=== PATIENT | male | born 1960 | race Hispanic/Latino ===

== ENCOUNTER 2017-07-27 19:03 | Inpatient (IN) | payer MEDICAID ==
[2017-07-27 20:37] LABS: HEMOGLOBIN 11.3 g/dL (12.0-18.0); MEAN CELL VOLUME 98.9 fL (80.0-94.0); MEAN CORPUSCULAR HEMOGLOBIN 33.9 pg (27.0-31.0); MEAN CORPUSCULAR HGB CONC 34.2 g/dL (33.0-37.0); MEAN PLATELET VOLUME 9.5 fL (7.2-11.7); RBC 3.34 Mil/uL (4.40-5.90); RED CELL DISTRIBUTION WIDTH 14.5 % (11.5-14.5)
[2017-07-27 20:50] LABS: ALB/GLOB RATIO 0.9 (1.0-2.1); ALBUMIN 3.6 g/dL (3.5-5.0); ALT/SGPT 45 U/L (21-72); AST/SGOT 84 U/L (17-59); BLOOD UREA NITROGEN 11 mg/dL (9-20); CALCIUM 8.8 mg/dl (8.6-10.4); GFR AFRICAN-AMERICAN > 60; GFR NON-AFRICAN AMERICAN 52
[2017-07-27 21:44] LABS: SQUAMOUS EPITHIAL 1 /hpf (0-5); URINE BACTERIA RARE (<OCC); URINE BILIRUBIN NEGATIVE (NEGATIVE); URINE BLOOD NEGATIVE (NEGATIVE); URINE CLARITY Clear (Clear); URINE COLOR Straw (YELLOW); URINE GLUCOSE (UA) NORMAL (Normal); URINE LEUKOCYTE ESTERASE NEG Leu/uL (Negative); URINE NITRATE NEGATIVE (NEGATIVE); URINE PROTEIN NEGATIVE (NEGATIVE); URINE UROBILINOGEN NORMAL mg/dL (0.2-1.0)
[2017-07-27 21:55] LABS: BARBITURATES, UR NEGATIVE (NEGATIVE); BENZODIAZEPINES, UR POSITIVE (NEGATIVE); OPIATES, UR NEGATIVE (NEGATIVE); PHENCYCLIDINE, UR NEGATIVE (NEGATIVE)
--- NOTE | 2017-07-27 22:12 | C.PDOC ---
History Of Present Illness Pt is here requesting detox from alcohol. Time Seen by Provider: 07/27/17 21:46 Chief Complaint (Nursing): Substance Abuse History Per: Patient Onset/Duration Of Symptoms: Days Current Symptoms Are (Timing): Still Present Suicide/Self Injury Attempted (Context): None Modifying Factor(s): Alcohol Severity: Moderate Associated Symptoms: denies: Suicidal Thoughts, Suicidal Plan Additional History Per: Prior Records Past Medical History Reviewed: Historical Data, Nursing Documentation, Vital Signs Vital Signs: Last Vital Signs Temp 98.4 F 07/27/17 19:14 Pulse 96 H 07/27/17 19:14 Resp 14 07/27/17 19:14 BP 111/74 07/27/17 19:14 Pulse Ox 96 07/27/17 19:14 - Medical History PMH: HTN, Seizures Surgical History: Cholecystectomy Family History: States: Unknown Family Hx - Social History Hx Tobacco Use: No Hx Alcohol Use: Yes Hx Substance Use: Yes - Immunization History Hx Tetanus Toxoid Vaccination: Yes Hx Influenza Vaccination: Yes Hx Pneumococcal Vaccination: No Review Of Systems Except As Marked, All Systems Reviewed And Found Negative. Constitutional: Negative for: Fever, Weakness Cardiovascular: Negative for: Chest Pain Respiratory: Negative for: Shortness of Breath Gastrointestinal: Negative for: Vomiting, Abdominal Pain Musculoskeletal: Negative for: Neck Pain Skin: Negative for: Rash Neurological: Negative for: Weakness, Numbness, Seizures, Altered Mental Status Psych: Negative for: Psychosis Physical Exam - Physical Exam Appears: Non-toxic, No Acute Distress Skin: Normal Color, Warm, Dry, No Rash Head: Atraumatic, Normacephalic Eye(s): bilateral: EOMI Neck: Normal ROM, Supple Cardiovascular: Rhythm Regular Respiratory: Normal Breath Sounds, No Accessory Muscle Use Gastrointestinal/Abdominal: Soft, No Tenderness Extremity: Normal ROM Neurological/Psych: Oriented x3, Normal Motor, Normal Sensation ED Course And Treatment - Laboratory Results Result Diagrams: 07/27/17 20:34 07/27/17 20:34 Lab Interpretation: No Acute Changes O2 Sat by Pulse Oximetry: 96 Pulse Ox Interpretation: Normal Progress Note: Pt is medically stable for detox admission. Disposition Counseled Patient/Family Regarding: Studies Performed, Diagnosis - Disposition Disposition: HOSPITALIZED Disposition Time: 22:11 Condition: STABLE - Clinical Impression Clinical Impression: Alcohol use disorder, severe, dependence Decision To Admit - Pt Status Changed To: Hospital Disposition Of: Inpatient - Admit Certification Admit to Inpatient:: After my assessment, the patient will require hospitalization for at least two midnights. This is because of the severity of symptoms shown, intensity of services needed, and/or the medical risk in this patient being treated as an outpatient. - InPatient: Physician Admission Certification: I certify that this patient requires 2 or more midnights of care for the following reason:: Detox. - . Bed Request Type: Detox Admitting Physician: Karina Kendall Patient Diagnosis: Alcohol use disorder, severe, dependence
--- NOTE | 2017-07-27 22:44 | PCM.BM ---
<LandyJill Christianson - Last Filed: 07/27/17 22:43> Treatment Plan Problems - Problems identified on initial assessmt Ineffective Coping Skills Date Initiated: 07/27/17 Time Initiated: 22:44 Assessment reference: NA Status: Active Treatment assets and liabiliti Patient Assests: ADL independent Patient Liabilities: substance abuse - Milieu Protocol Maintain good personal hygiene: daily Encourage regular showers, daily Remind patient to perform daily oral care, other Assist patient to perform ADL's Maintain personal safety: every shift Educate patient to report safety concerns to staff, every shift Monitor environment for contraband/sharps Medication safety: Monitor for expected outcome, potential side effects: every shift, Assess barriers to learning: every shift, Assess readiness for medication education: every shift <Radha Odom - Last Filed: 07/30/17 14:56> - Diagnosis (1) Alcohol use disorder, severe, dependence Status: Acute Interventions: 07/30/17 14:56 * Assess 7x/week regarding severity of withdrawal * Educate regarding risks, benefits, side effects and alternatives of medications * Use Motivational Interviewing for abstinence * Use CBT for relapse prevention * Medication management for withdrawal symptoms * Encourage medication assisted treatment * <Lashae Caballero - Last Filed: 07/30/17 16:26> Family Contact Family involvement: Jimy/SO not involved - Goals for Treatment Patient goals for treatment: Complete detox and consider inpatient rehab or outpatient Vivitrol. Discharge/Continuing Care - Education Needs Education Needs: Patient Medication, Patient Diagnosis/Disease Process, Patient Coping Skills, Patient Anger Management skills, Patient Placement options, Patient Community resources - Discharge Discharge Criteria: No longer exhibiting s/s of withdrawal, Reduction of target symptoms Discharge to:: Substance Abuse Rehab - Treatment Team Participation Patient/Family/SO Statement: 07/30/17 16:25 "I wanna either go to rehab or get that Vivitrol shot..." Discussed with Family/SO: No Was Patient/Family/SO present at Treatment Team Meeting: Yes
[2017-07-27] MEDS ORDERED: Aluminum Hydroxide/Magnesium Hydroxide Susp (30 mL) PO PRN (22:52)
[2017-07-28] MEDS: Multiple Vitamins Tab PO SCH (09:22)
--- NOTE | 2017-07-28 10:08 | PCM.PSYCH ---
Initial Psychiatric Evaluation - Initial Psychiatric Evaluation Type of Admission: Voluntary Legal Status: Capacity Chief Complaint (in patient's own words): I need help.' Patient's Reaction to Hospitalization: This is a 56 year old CM, who lives with his mother, with a long history alcohol abuse came to the [facility] for alcohol detox. Pt denies any past history of any inpatient psychiatric hospitalizations and denies any h/o follow up with any psychiatrist. However, he reports a long h/o drinking. He states he drinks 12-15 12oz beers and a pint of liquor daily. Yesterday he consumed approximately 4 12oz beers, started experiencing withdrawal s/s, so came to the to get help. Patient reports withdrawal symptoms including, headaches, tremors, anxiety and restlessness. He reports depressed mood, but denies any suicidal ideation or homicidal ideation. Patient reports poor sleep but denies any manic symptoms. He denies any auditory or visual hallucinations or any psychotic symptoms. He denies abusing any other substance except marihuana. Pt states he also smokes marijuana daily, last use was yesterday, when he "took a few hits," and states he smokes "a few joints" daily. As per the ED notes, pt stated, he has been abusing alcohol on and off x40 years. Pt has a history of ETOH-related seizures, last experienced in 01/2017 when he was hospitalized x1 week at [facility]] in [place], [place]. Pt stated his last detox was at [facility] in [place], [place] "a few months ago." Pt stated he has experienced significant trauma in the past, as his brother in his arms from an anneurysm. PMH HTN, Seizures Current Medications: Active Medications Generic Name Dose Route Start Last Admin Trade Name Freq PRN Reason Stop Dose Admin Acetaminophen 650 mg 07/28/17 09:27 07/28/17 09:34 Tylenol 325mg Tab PO 650 mg Q6 PRN Administration Pain, moderate (4-7) Al Hydrox/Mg Hydrox/Simethicone 30 ml 07/27/17 22:52 Maalox 30 Ml PO TID PRN Indigestion / Heartburn Chlordiazepoxide 25 mg 07/28/17 00:00 07/28/17 06:23 Librium PO 08/01/17 23:59 25 mg Q6 ASHWINI Administration Taper Chlordiazepoxide 25 mg 07/27/17 22:50 Librium PO Q4H PRN Alcohol Withdrawal Clonidine HCl 0.1 mg 07/27/17 22:50 07/27/17 23:46 Catapres PO 0.1 mg Q4H PRN Administration Symptoms of alcohol withdrawl Folic Acid 1 mg 07/28/17 10:00 07/28/17 09:22 Folic Acid PO 1 mg DAILY ASHWINI Administration Loperamide HCl 2 mg 07/27/17 22:52 Imodium PO Q8 PRN Diarrhea Multivitamins 1 tab 07/28/17 10:00 07/28/17 09:22 Hexavitamin PO 1 tab DAILY ASHWINI Administration Ondansetron HCl 4 mg 07/27/17 22:52 Zofran Tab PO Q8 PRN Nausea/Vomiting Pseudoephedrine HCl 60 mg 07/27/17 22:52 Sudafed Tab PO QID PRN Nasal/Sinus Congestion Thiamine HCl 100 mg 07/28/17 10:00 07/28/17 09:22 Vitamin B1 Tab PO 100 mg DAILY ASHWINI Administration Trazodone HCl 50 mg 07/27/17 22:50 07/27/17 23:46 Desyrel PO 50 mg HS PRN Administration Insomnia Past Psychiatric History - Past Psychiatric History Previous Treatment History: Inpatient Pertinent Medical Hx (Current Medical&Sleep Prob, Allergies): Allergies Allergy/AdvReac Type Severity Reaction Status Date / Time No Known Allergies Allergy Unverified 07/27/17 19:19 Folic Acid 1 mg PO DAILY 07/27/17 Labetalol [Trandate] 300 mg 07/27/17 Levetiracetam [Keppra] 500 mg PO BID 07/27/17 Losartan Potassium [Cozaar] 100 mg PO DAILY 07/27/17 Pantoprazole [Protonix Inj] 40 mg PO DAILY 07/27/17 Review of Systems - Review of Systems All systems: reviewed and no additional remarkable complaints except - Psychiatric Psychiatric: Anxiety, Irritability Mental Status Examination - Personal Presentation Personal Presentation: Looks stated age - Affect Affect: Constricted - Motor Activity Motor Activity: Calm - Reliability in Providing Information Reliability in Providing Information: Good - Speech Speech: Organized - Mood Mood: Anxious - Obsessions/Compulsions Obsessions: No Compulsions: No - Cognitive Functions Orientation: Person, Place, Situation, Time Sensorium: Alert Attention/Concentration: Attentive Abstract Thinking: [place] Estimate of Intelligence: Below average Judgement: Imparied, as evidence by: Poor judgement, Imparied, as evidence by: Lack of insight into illness - Risk Risk: Withdrawal, Diminished functioning DSM 5 DX - DSM 5 DSM 5 Diagnosis: Alcohol use disorder severe Alcohol withdrawal uncomplicated Depressive disorder - Recommended/Plan of Treatment Treatment Recommendations and Plan of Treatment: Alcohol use disorder severe -CBT -Psychoeducation -Supportive therapy, individual therapy -Use RI for abstinence Alcohol withdrawal uncomplicated -CBT -Psychoeducation -Supportive therapy, individual therapy -Librium when necessary -Start Librium taper -Start folic acid/thiamine/multivitamin Depressive disorder -CBT -Psychoeducation -Supportive therapy, individual therapy -Trazodone 50 mg PO QHS - Smoking Cessation Smoking Cessation Initiated: No
[2017-07-29 09:04] LABS: ALBUMIN 3.9 g/dL (3.5-5.0); ALT/SGPT 35 U/L (21-72); AST/SGOT 58 U/L (17-59); BLOOD UREA NITROGEN 16 mg/dL (9-20); CALCIUM 8.9 mg/dl (8.6-10.4); GFR AFRICAN-AMERICAN > 60; GFR NON-AFRICAN AMERICAN > 60
[2017-07-29] MEDS: Multiple Vitamins Tab PO SCH (09:33)
--- NOTE | 2017-07-29 12:36 | PCM.PYCHPN ---
Psychiatric Progress Note - Psychiatric Progress Note Patient seen today, length of contact: 15 min Patient Chief Complaint: I am still shaking.' Problems Identified/Issues Discussed: Patient seen and evaluated, chart reviewed and discussed with the nurse. Patient still reports withdrawal symptoms including nausea, headaches, shakes and sweating. He reports irritable mood but denies any feelings of hopelessness and helplessness. He denies any SI/HI/AVH. Patient remained isolated, confined and withdrawn. He is taking medication and denies any side effects. He needs more time for stabilization. Supportive therapy and psychoeducation were given. Medication Change: Yes (librium taper, start Neurontin) Medical Record Reviewed: Yes Mental Status Examination - Cognitive Function Orientation: Person, Place, Situation, Time Memory: Intact Attention: WNL Concentration: Poor Association: WNL Fund of Knowledge: Poor - Mood Mood: Anxious - Affect Affect: Constricted - Speech Speech: Soft - Formal Thought Process Formal Thought Process: No Impairment - Suicidal Ideation Suicidal Ideation: No - Homicidal Ideation Homicidal Ideation: No Goal/Treatment Plan - Goal/Treatment Plan Need for Continued Stay: Severe depression anxiety, Severe functional impairment Progress Toward Problem(s) and Goals/Treatment Plan: Alcohol use disorder severe -CBT -Psychoeducation -Supportive therapy, individual therapy -Use WI for abstinence Alcohol withdrawal uncomplicated -CBT -Psychoeducation -Supportive therapy, individual therapy -Librium when necessary -Librium taper -Folic acid/thiamine/multivitamin -Neurontin 300 mg PO TID Seizure d/o -Keppra 500 mg PO BID HTN -Continue Losartan 100 mg PO Daily - Smoking Cessation Smoking Cessation Initiated: No
[2017-07-30] MEDS: Multiple Vitamins Tab PO SCH (09:42)
--- NOTE | 2017-07-30 13:24 | PCM.PYCHPN ---
Psychiatric Progress Note - Psychiatric Progress Note Patient seen today, length of contact: 15 min Patient Chief Complaint: "not good but better" Problems Identified/Issues Discussed: The pt is seen, chart reviewed, case discussed with staff. Support given, CBT and NV used briefly No new symptoms reported, improving slowly and needs more time No SEs from medications, risks discussed. After care discussed Medication Change: Yes (librium taper) Medical Record Reviewed: Yes Mental Status Examination - Cognitive Function Orientation: Person, Place, Situation, Time Memory: Intact Attention: WNL Concentration: Poor Association: WNL Fund of Knowledge: WNL - Mood Mood: Anxious - Affect Affect: Constricted - Speech Speech: Appropriate, Soft - Formal Thought Process Formal Thought Process: No Impairment - Suicidal Ideation Suicidal Ideation: No - Homicidal Ideation Homicidal Ideation: No Goal/Treatment Plan - Goal/Treatment Plan Need for Continued Stay: Severe depression anxiety, Severe functional impairment Progress Toward Problem(s) and Goals/Treatment Plan: Librium detox Naltrexone started Gabapentin for augmentation As needed medications All risks, benefits and alternatives of the meds discussed, and the pt agreed and understood. Attend groups and activities Supportive therapy and psychoeducation NV for abstinence CBT for relapse prevention Encourage MAT Refer to rehab or IOP, and self-help groups 34 min
[2017-07-31] MEDS: Multiple Vitamins Tab PO SCH (09:17)
--- NOTE | 2017-07-31 15:01 | PCM.PYCHPN ---
Psychiatric Progress Note - Psychiatric Progress Note Patient seen today, length of contact: 16 min Patient Chief Complaint: "I feel shaky" Problems Identified/Issues Discussed: The pt is seen, chart reviewed, case discussed with staff. Patient states he feels shaky. He is currently experiencing withdrawal symptoms. Support given, CBT and NM used briefly No new symptoms reported, improving slowly and needs more time No SEs from medications, risks discussed. After care discussed Medication Change: Yes (librium taper) Medical Record Reviewed: Yes Mental Status Examination - Cognitive Function Orientation: Person, Place, Situation, Time Memory: Intact Attention: WNL Concentration: WNL Association: WNL Fund of Knowledge: WNL - Mood Mood: Anxious - Affect Affect: Constricted - Speech Speech: Appropriate, Soft - Formal Thought Process Formal Thought Process: No Impairment - Suicidal Ideation Suicidal Ideation: No - Homicidal Ideation Homicidal Ideation: No Goal/Treatment Plan - Goal/Treatment Plan Need for Continued Stay: Severe depression anxiety, Severe functional impairment Progress Toward Problem(s) and Goals/Treatment Plan: Librium detox Naltrexone started Gabapentin for augmentation As needed medications All risks, benefits and alternatives of the meds discussed, and the pt agreed and understood. Attend groups and activities Supportive therapy and psychoeducation NM for abstinence CBT for relapse prevention Encourage MAT Refer to rehab or IOP, and self-help groups
[2017-08-01] MEDS: Multiple Vitamins Tab PO SCH (09:12)
--- NOTE | 2017-08-01 14:57 | PCM.PYCHPN ---
Psychiatric Progress Note - Psychiatric Progress Note Patient seen today, length of contact: 16 min Patient Chief Complaint: "I still feel very shaky and sleepy" Problems Identified/Issues Discussed: The pt is seen, chart reviewed, case discussed with staff. Patient states he feels shaky. He is currently experiencing withdrawal symptoms. He states he also feels dizzy upon standing and can only walk slowly Support given, CBT and CA used briefly No new symptoms reported, improving slowly and needs more time No SEs from medications, risks discussed. After care discussed Medication Change: Yes (librium taper) Medical Record Reviewed: Yes Mental Status Examination - Cognitive Function Orientation: Person, Place, Situation, Time Memory: Intact Attention: Poor Concentration: Poor Association: WNL Fund of Knowledge: WNL - Mood Mood: Depressed - Affect Affect: Constricted - Speech Speech: Appropriate, Soft - Formal Thought Process Formal Thought Process: No Impairment - Suicidal Ideation Suicidal Ideation: No - Homicidal Ideation Homicidal Ideation: No Goal/Treatment Plan - Goal/Treatment Plan Need for Continued Stay: Severe depression anxiety, Severe functional impairment Progress Toward Problem(s) and Goals/Treatment Plan: Librium detox Naltrexone started Gabapentin for augmentation As needed medications All risks, benefits and alternatives of the meds discussed, and the pt agreed and understood. Attend groups and activities Supportive therapy and psychoeducation CA for abstinence CBT for relapse prevention Encourage MAT Refer to rehab or IOP, and self-help groups
[2017-08-02] MEDS: Multiple Vitamins Tab PO SCH (09:05)
--- NOTE | 2017-08-02 14:12 | PCM.PYCHPN ---
Psychiatric Progress Note - Psychiatric Progress Note Patient seen today, length of contact: 16 min Patient Chief Complaint: "I feel less shaky than yesterday" Problems Identified/Issues Discussed: The pt is seen, chart reviewed, case discussed with staff. Patient states he is feeling better. His shakes and dizziness have improved Patient will be ready for discharge tomorrow. The pt is compliant with medications and reports no side-effects. Symptoms are improving but needs more time to stabilize. After care discussed, support and psychoeducation given. Since he still has ongoing withdrawal sxs, his stay is extended one day. He agreed. Medication Change: Yes (librium taper) Medical Record Reviewed: Yes Mental Status Examination - Cognitive Function Orientation: Person, Place, Situation, Time Memory: Intact Attention: WNL Concentration: WNL Association: WNL Fund of Knowledge: WNL - Mood Mood: Depressed - Affect Affect: Constricted - Speech Speech: Appropriate, Soft - Formal Thought Process Formal Thought Process: No Impairment - Suicidal Ideation Suicidal Ideation: No - Homicidal Ideation Homicidal Ideation: No Goal/Treatment Plan - Goal/Treatment Plan Need for Continued Stay: Severe depression anxiety, Severe functional impairment Progress Toward Problem(s) and Goals/Treatment Plan: Librium detox ending Naltrexone started Gabapentin for augmentation As needed medications All risks, benefits and alternatives of the meds discussed, and the pt agreed and understood. Attend groups and activities Supportive therapy and psychoeducation CA for abstinence CBT for relapse prevention Encourage MAT Refer to rehab or IOP, and self-help groups Estimated Date of D/C: 08/03/17
--- NOTE | 2017-08-03 08:45 | PCM.PYCHDC ---
Mental Status Examination - Mental Status Examination Orientation: Person, Place, Situation, Time Memory: Intact Mood: Neutral Affect: Constricted Speech: Appropriate Attention: WNL Concentration: WNL Association: WNL Fund of Knowledge: WNL Formal Thought Process: No Impairment Suicidal Ideation: No Current Homicidal Ideation?: No Discharge Summary - Discharge Note Reason for Hospitalization: Detox from alcohol Consultations:: List each consultation separately and include: 1. Reason for request. 2. Findings. 3. Follow-up Summary of Hospital Course include:: 1. Description of specific treatment plan utilized for patients during their course of treatmen. 2. Summarize the time- course for resolution of acute symptoms and/or regressed behaviors. 3. Describe issues identified and worked on during hospitalization. 4. Describe medication utilized. 5. Describe medical problems identified and treated. 6. Reassessment of suicide risk Summary of Hospital Course: The pt was admitted and started on treatment with psychotherapy, support, psychoeducation and medications. UT and CBT used. The pt attended groups and activities, as well as milieu therapy. All the risks and benefits of medications are discussed and the patient understood and agreed. The pt improved with the treatments provided. After care discussed with the patient. Patient will be attending an [facility] - Final Diagnosis (DSM 5) Condition upon Discharge: STABLE DSM 5: Alcohol use disorder -severe Alcohol withdrawal uncomplicated Depressive disorder, recurrent Disposition: HOME/ ROUTINE Follow-up Treatment Plan: Continue below medications after discharge. He agreed to stop keppra slowly and will consult with a neurologist. He only had one seizure and it was while withdrawing from alcohol. Follow after care plan as discussed. Use relapse prevention skills Return to ER or call 911 if suicidal, homicidal or symptoms relapse. Stay away from stress, alcohol and drugs. See primary doctor regularly and get labs. Prescriptions/Medication Reconciliation: Gabapentin [Neurontin] 300 mg PO TID #90 cap levETIRAcetam [Keppra] 250 mg PO DAILY #7 tab Losartan [Cozaar] 100 mg PO DAILY #30 tab Naltrexone [Revia] 50 mg PO DAILY #30 tab Sertraline [Zoloft] 50 mg PO DAILY #30 tab traZODone [Desyrel] 100 mg PO HS PRN #30 tab PRN Reason: Insomnia - Smoking Cessation Smoking Cessation Medication prescribed: No - Antipsychotic Medications Pt discharged on 2 or more routine antipsychotic medications: No
[2017-08-03] MEDS: Multiple Vitamins Tab PO SCH (09:14)
[2017-08-03 10:10] VITALS: BP 144/81; PULSE 79; RESP 20; TEMP 97.4; O2SAT 97
== END 2017-08-03 10:15 | disposition home or self-care (01) | DRG 751 ==
LOC: C.ER 19:03 → C.7D 22:12
PROVIDERS: ADMIT Psychiatry & Neurology Psychiatry; ATTEND Psychiatry & Neurology Psychiatry
PROC: HZ2ZZZZ Detoxification Services for Substance Abuse Treatment (ICD-10-PCS; principal; 2017-07-28)
PROC: HZ42ZZZ Group Counseling for Substance Abuse Treatment, Cognitive-Behavioral (ICD-10-PCS; 2017-07-28)
PROC: HZ52ZZZ Individual Psychotherapy for Substance Abuse Treatment, Cognitive-Behavioral (ICD-10-PCS; 2017-07-28)
PROC: HZ59ZZZ Individual Psychotherapy for Substance Abuse Treatment, Supportive (ICD-10-PCS; 2017-07-28)
PROC: HZ56ZZZ Individual Psychotherapy for Substance Abuse Treatment, Psychoeducation (ICD-10-PCS; 2017-07-28)
PROC: HZ46ZZZ Group Counseling for Substance Abuse Treatment, Psychoeducation (ICD-10-PCS; 2017-07-28)
DX: F10.230 Alcohol dependence with withdrawal, uncomplicated (principal); F41.8 Other specified anxiety disorders; I10 Essential (primary) hypertension; Y90.3 Blood alcohol level of 60-79 mg/100 ml; G40.909 Epilepsy, unspecified, not intractable, without status epilepticus; Z90.49 Acquired absence of other specified parts of digestive tract

== ENCOUNTER 2017-10-18 14:07 | Inpatient (IN) | payer MEDICAID ==
--- NOTE | 2017-10-18 15:01 | C.PDOC ---
History Of Present Illness 57yo male, presents to ED requesting detox from alcohol. Patient denies fever, chills, chest pain, dyspnea, nausea, vomiting, diarrhea, numbness, weakness. Patient states last alcohol use was an hour prior to arrival. No other complaints. Time Seen by Provider: 10/18/17 14:34 Chief Complaint (Nursing): Substance Abuse History Per: Patient History/Exam Limitations: no limitations Associated Symptoms: denies: Suicidal Thoughts, Suicidal Plan Past Medical History Reviewed: Historical Data, Nursing Documentation, Vital Signs Vital Signs: Last Vital Signs Temp 97.8 F 10/18/17 14:17 Pulse 92 H 10/18/17 14:17 Resp 16 10/18/17 14:17 BP 150/81 10/18/17 14:17 Pulse Ox 92 L 10/18/17 17:12 - Medical History PMH: HTN, Seizures Denies: Diabetes, Hepatitis, HIV, Sexually Transmitted Disease Surgical History: Cholecystectomy - [facility] Procedures DETOXIFICATION SERVICES FOR SUBSTANCE ABUSE TREATMENT (07/27/17) GROUP ROOM SERVICE [facility] FOR SUBSTANCE ABUSE TREATMENT, PSYCHOEDUCATION (07/27/17) GROUP ROOM SERVICE [facility] FOR SUBSTANCE ABUSE, COGNITIVE BEHAVIORAL (07/27/17) INDIV PSYCHOTHERAPY FOR SUBSTANCE ABUSE TREATMENT, SUPPORT (07/27/17) INDIV PSYCHOTHERAPY FOR SUBSTANCE ABUSE, COGNITIV BEHAVIORAL (07/27/17) INDIV PSYCHOTHERAPY FOR SUBSTANCE ABUSE, PSYCHOEDUCATION (07/27/17) Family History: States: Unknown Family Hx - Social History Hx Tobacco Use: No Hx Alcohol Use: Yes Hx Substance Use: Yes (marijuana) - Immunization History Hx Tetanus Toxoid Vaccination: Yes Hx Influenza Vaccination: Yes Hx Pneumococcal Vaccination: No Review Of Systems Except As Marked, All Systems Reviewed And Found Negative. Constitutional: Negative for: Fever Cardiovascular: Negative for: Chest Pain Physical Exam - Physical Exam Additional Physical Exam Comments: Constitutional: No acute distress. Head: Normocephalic. Atraumatic. Eyes: PERRL. ENT: Moist mucous membranes. Neck: Supple. Cardiovascular: Regular rate. Radial pulse 2+ bilaterally. Chest: No tenderness. Respiratory: Clear to auscultation bilaterally. GI: Soft. Nontender. Nondistended. Back: No CVA tenderness. Musculoskeletal: No tenderness or swelling of extremities. Skin: No rash. Neurologic: Alert, no focal deficit. ED Course And Treatment - Laboratory Results Result Diagrams: 10/18/17 15:33 10/18/17 15:33 O2 Sat by Pulse Oximetry: [address]position D[address].: Karina Kendall Doctor Will See Patient In The: Hospital - Disposition Disposition: HOSPITALIZED Disposition Time: 17:12 Condition: STABLE Forms: [facility] (Luxembourgish) - Clinical Impression Clinical Impression: Alcohol use disorder, severe, dependence - Scribe Statement The provider has reviewed the documentation as recorded by the Scribe (Sandra Holliday) Provider Attestation: All medical record entries made by the Nallelyibe were at my direction and personally dictated by me. I have reviewed the chart and agree that the record accurately reflects my personal performance of the history, physical exam, medical decision making, and the department course for this patient. I have also personally directed, reviewed, and agree with the discharge instructions and disposition.
[2017-10-18 15:48] LABS: BASO # 0.2 K/uL (0.0-0.2); BASO % 1.3 % (0.0-2.0); EOS # 0.4 K/uL (0.0-0.7); EOS % 3.4 % (0.0-4.0); HEMOGLOBIN 12.6 g/dL (12.0-18.0); LYMPH # 3.6 K/uL (1.0-4.3); LYMPH % 30.8 % (20.0-40.0); MEAN CORPUSCULAR HEMOGLOBIN 32.2 pg (27.0-31.0); MEAN CORPUSCULAR HGB CONC 34.1 g/dL (33.0-37.0); MEAN PLATELET VOLUME 9.2 fL (7.2-11.7); MONO # 1.1 K/uL (0.0-0.8); MONO % 9.2 % (0.0-10.0); NEUT # 6.5 K/uL (1.8-7.0); NEUT % 55.3 % (50.0-75.0); RBC 3.93 Mil/uL (4.40-5.90); RED CELL DISTRIBUTION WIDTH 14.3 % (11.5-14.5)
[2017-10-18 15:51] LABS: MEAN CELL VOLUME 94.3 fL (80.0-94.0); WHITE BLOOD COUNT 11.8 K/uL (4.8-10.8)
[2017-10-18 15:55] LABS: SQUAMOUS EPITHIAL 1 /hpf (0-5); URINE BILIRUBIN NEGATIVE (NEGATIVE); URINE BLOOD NEGATIVE (NEGATIVE); URINE CLARITY Clear (Clear); URINE COLOR Straw (YELLOW); URINE GLUCOSE (UA) NORMAL (Normal); URINE LEUKOCYTE ESTERASE 1+ Leu/uL (Negative); URINE PROTEIN NEGATIVE (NEGATIVE); URINE UROBILINOGEN NORMAL mg/dL (0.2-1.0)
[2017-10-18 16:08] LABS: ALB/GLOB RATIO 0.8 (1.0-2.1); ALBUMIN 4.1 g/dL (3.5-5.0); ALT/SGPT 36 U/L (21-72); AST/SGOT 63 U/L (17-59); BLOOD UREA NITROGEN 10 mg/dL (9-20); CALCIUM 9.8 mg/dl (8.6-10.4); GFR AFRICAN-AMERICAN > 60; GFR NON-AFRICAN AMERICAN > 60
[2017-10-18 16:16] LABS: BARBITURATES, UR NEGATIVE (NEGATIVE); OPIATES, UR NEGATIVE (NEGATIVE); PHENCYCLIDINE, UR NEGATIVE (NEGATIVE)
[2017-10-18 16:22] LABS: BENZODIAZEPINES, UR POSITIVE (NEGATIVE)
--- NOTE | 2017-10-18 17:49 | PCM.BM ---
<To Denise - Last Filed: 10/18/17 17:49> Treatment Plan Problems - Problems identified on initial assessmt potential for alcohol withdrawal Date Initiated: 10/18/17 Time Initiated: 17:48 Assessment reference: NA Status: Active Treatment assets and liabiliti Patient Assests: ADL independent, cognitively intact Patient Liabilities: substance abuse, medical problems - Milieu Protocol Maintain good personal hygiene: daily Encourage regular showers, daily Remind patient to perform daily oral care, daily Assist patient to perform ADL's Conduct patient checks and document Observation sheet: Q15 minutes Maintain personal safety: every shift Educate patient to report safety concerns to staff, every shift Monitor environment for contraband/sharps Medication safety: Monitor for expected outcome, potential side effects: daily, Assess barriers to learning: daily, Assess readiness for medication education: daily <Lashae Caballero - Last Filed: 10/22/17 11:25> Family Contact Family involvement: No known Family/SO - Goals for Treatment Patient goals for treatment: COMPLETE DETOX AND APPLY FOR SHORT-TERM REHAB. Discharge/Continuing Care - Education Needs Education Needs: Patient Medication, Patient Diagnosis/Disease Process, Patient Coping Skills, Patient Anger Management skills, Patient Placement options, Patient Community resources - Discharge Discharge Criteria: Free of agitation, No longer exhibiting s/s of withdrawal, Reduction of target symptoms Discharge to:: Substance Abuse Rehab - Treatment Team Participation Patient/Family/SO Statement: 10/22/17 11:26 "i WANNA GO TO SHORT TERM REHAB". Discussed with Family/SO: No Was Patient/Family/SO present at Treatment Team Meeting: Yes <Radha Odom - Last Filed: 10/22/17 18:55> - Diagnosis (1) Alcohol use disorder, severe, dependence Status: Acute Interventions: 10/22/17 18:55 * Assess 7x/week regarding severity of withdrawal * Educate regarding risks, benefits, side effects and alternatives of medications * Use Motivational Interviewing for abstinence * Use CBT for relapse prevention * Medication management for withdrawal symptoms * Encourage medication assisted treatment *
[2017-10-19] MEDS: Labetalol Hydrochloride 300 mg Tab PO SCH (10:10)
[2017-10-19] MEDS: Multiple Vitamins Tab PO SCH (10:11)
--- NOTE | 2017-10-19 14:47 | PCM.PSYCH ---
Initial Psychiatric Evaluation - Initial Psychiatric Evaluation Type of Admission: Voluntary Legal Status: Capacity Chief Complaint (in patient's own words): "I need to stop." History of Present Illness and Precipitating Events: This is a 57 year old male, who presented to the ED for alcohol detox. Patient states he drinks 1 pint of tequila and a 12-pack of beer per day. Patient states he has been to several detox and short-term rehab facilities before. He states he was last at [facility] in July for detox. Patient states he also smokes marijuana occasionally. Patient denies other illicit drug use or tobacco use. Patient denies depression, anxiety, suicidal ideation, paranoia, or hallucinations. psych history: denies medical history: HTN, withdrawal seizure allergies: NKDA Current Medications: Active Medications Generic Name Dose Route Start Last Admin Trade Name Freq PRN Reason Stop Dose Admin Chlordiazepoxide 25 mg 10/18/17 20:47 10/19/17 13:05 Librium PO 25 mg Q4H PRN Administration Alcohol Withdrawal Chlordiazepoxide 25 mg 10/19/17 00:00 10/19/17 12:11 Librium PO 10/23/17 23:59 Not Given Q6 ASHWINI Taper Clonidine HCl 0.1 mg 10/18/17 22:04 10/19/17 06:06 Catapres PO 0.1 mg Q8H PRN Administration Symptoms of alcohol withdrawl Folic Acid 1 mg 10/19/17 10:00 10/19/17 10:10 Folic Acid PO 1 mg DAILY ASHWINI Administration Gabapentin 300 mg 10/19/17 10:00 10/19/17 13:05 Neurontin PO 300 mg TID ASHWINI Administration Labetalol HCl 300 mg 10/19/17 10:00 10/19/17 10:10 Normodyne PO 300 mg DAILY ASHWINI Administration Losartan Potassium 100 mg 10/19/17 10:00 10/19/17 10:10 Cozaar PO 100 mg DAILY ASHWINI Administration Multivitamins 1 tab 10/19/17 10:00 10/19/17 10:11 Hexavitamin PO 1 tab DAILY ASHWINI Administration Thiamine HCl 100 mg 10/19/17 10:00 10/19/17 10:10 Vitamin B1 Tab PO 100 mg DAILY ASHWINI Administration Trazodone HCl 50 mg 10/18/17 20:46 10/18/17 20:52 Desyrel PO 50 mg HS PRN Administration Insomnia Past Psychiatric History - Past Psychiatric History Previous Treatment History: None History of ETOH/Drug Use: Alcohol Use Disorder History of Family Illness: Denies Pertinent Medical Hx (Current Medical&Sleep Prob, Allergies): Allergies Allergy/AdvReac Type Severity Reaction Status Date / Time No Known Allergies Allergy Unverified 07/27/17 19:19 Labetalol [Trandate] 300 mg PO DAILY 07/27/17 Gabapentin [Neurontin] 300 mg PO TID #90 cap 08/03/17 Losartan [Cozaar] 100 mg PO DAILY #30 tab 08/03/17 Sertraline [Zoloft] 50 mg PO DAILY #30 tab 08/03/17 levETIRAcetam [Keppra] 250 mg PO DAILY #7 tab 08/03/17 traZODone [Desyrel] 100 mg PO HS PRN #30 tab 08/03/17 Review of Systems - Review of Systems All systems: reviewed and no additional remarkable complaints except - Psychiatric Psychiatric: absent: Anxiety, Depression, Hallucinations, Hopelessness, Paranoia , Suicidal Ideation Mental Status Examination - Personal Presentation Personal Presentation: Looks stated age - Affect Affect: Broad - Motor Activity Motor Activity: Calm - Reliability in Providing Information Reliability in Providing Information: Fair - Speech Speech: Organized - Mood Mood: Anxious - Formal Thought Process Formal Thought Process: No Impairment - Obsessions/Compulsions Obsessions: No Compulsions: No - Cognitive Functions Orientation: Person, Place, Situation Sensorium: Alert - Risk Risk: Withdrawal - Limitations Limitations: Living alone DSM 5 DX - DSM 5 DSM 5 Diagnosis: Alcohol Use Disorder, severe Alcohol withdrawal - Recommended/Plan of Treatment Treatment Recommendations and Plan of Treatment: Start Librium taper Gabapentin for augmentation As needed medications All risks, benefits and alternatives of the meds discussed, and the pt agreed and understood. Attend groups and activities Supportive therapy and psychoeducation CA for abstinence CBT for relapse prevention Encourage MAT Refer to rehab or IOP, and self-help groups 34 min
[2017-10-20] MEDS: Labetalol Hydrochloride 300 mg Tab PO SCH (10:53)
[2017-10-20] MEDS: Multiple Vitamins Tab PO SCH (10:53)
--- NOTE | 2017-10-20 14:28 | PCM.PYCHPN ---
Psychiatric Progress Note - Psychiatric Progress Note Patient seen today, length of contact: 15 minutes Patient Chief Complaint: I'm feeling little better but sleepy as not good. Problems Identified/Issues Discussed: Patient seen, chart reviewed, case discussed with the staff. Issues related to illness and treatment were discussed with the patient and staff. Reported compliant with treatment with no adverse affects. Patient reported feeling little better. Also complaining about sleeping difficulties. Will increase the dose of trazodone to 100 mg from 50 mg. Patient agreed Aftercare discussed with the patient. At the time of evaluation, patient was awake alert oriented 3, no delusions, no auditory visual hallucinations, no suicidal ideations or homicidal ideations. Medical Problems: Hypertension Diagnostic Results: Reviewed DSM 5 Symptoms Update: Some improvement with treatment Medication Change: No Medical Record Reviewed: Yes Mental Status Examination - Cognitive Function Orientation: Person, Place, Situation, Time Memory: Intact Attention: WNL Concentration: WNL Association: [facility] Fund of Knowledge: [facility] Decription of patient's judgement and insights: Fair - Mood Mood: Anxious - Affect Affect: Other (Appropriate) - Speech Speech: Appropriate - Formal Thought Process Formal Thought Process: No Impairment Psychotic Thoughts and Behaviors: None - Suicidal Ideation Suicidal Ideation: No - Homicidal Ideation Homicidal Ideation: No Goal/Treatment Plan - Goal/Treatment Plan Need for Continued Stay: Remain at risks for inpatient hospitalization, Discharge may exacerbated symptoms, Severe functional impairment Progress Toward Problem(s) and Goals/Treatment Plan: Patient education Supportive therapy CBT for relapse prevention [place] for abstinence Will increase the dose of trazodone to 100 mg from 50 mg at bedtime. Continue rest of the treatment as before Estimated Date of D/C: 10/23/17 - Smoking Cessation Smoking Cessation Initiated: No
[2017-10-21] MEDS: Labetalol Hydrochloride 300 mg Tab PO SCH (09:08)
[2017-10-21] MEDS: Multiple Vitamins Tab PO SCH (09:08)
--- NOTE | 2017-10-21 13:05 | PCM.PYCHPN ---
Psychiatric Progress Note - Psychiatric Progress Note Patient seen today, length of contact: 15 minutes Patient Chief Complaint: I'm feeling better, my sleep was also better. Problems Identified/Issues Discussed: Patient seen, chart reviewed, case discussed with the staff. Issues related to illness and treatment were discussed with the patient and staff. Reported compliant with treatment with no adverse affects. Patient reported feeling better, but better sleep. Calm and cooperative with good eye contact. Aftercare discussed with the patient. At the time of evaluation, patient was awake alert oriented 3, no delusions, no auditory visual hallucinations, no suicidal ideations or homicidal ideations. Medical Problems: Hypertension Diagnostic Results: Reviewed DSM 5 Symptoms Update: Improving with treatment Medication Change: No Medical Record Reviewed: Yes Mental Status Examination - Cognitive Function Orientation: Person, Place, Situation, Time Memory: Intact Attention: WNL Concentration: WNL Association: WNL Fund of Knowledge: WN Decription of patient's judgement and insights: Fair - Mood Mood: Anxious (Wants less than before) - Affect Affect: Other (Appropriate) - Speech Speech: Appropriate - Formal Thought Process Formal Thought Process: No Impairment Psychotic Thoughts and Behaviors: None - Suicidal Ideation Suicidal Ideation: No - Homicidal Ideation Homicidal Ideation: No Goal/Treatment Plan - Goal/Treatment Plan Need for Continued Stay: Remain at risks for inpatient hospitalization, Discharge may exacerbated symptoms, Severe functional impairment Progress Toward Problem(s) and Goals/Treatment Plan: Patient education Supportive therapy CBT for relapse prevention [place] for abstinence Continue treatment as before Estimated Date of D/C: 10/23/17 - Smoking Cessation Smoking Cessation Initiated: No
--- NOTE | 2017-10-21 17:31 | RAD ---
Chest x-ray two views History: Rehab. Comparison: None available. Findings: Surgical clips project over the mediastinum. Biapical pleural thickening with upper lobe granulomatous changes. Small nodular density at the right apex. Diffuse increased interstitial lung markings. Right hilar prominence. Mild patchy increased markings at the lung bases. Top normal heart size. Degenerative changes spine and shoulders. Impression: Surgical clips project over the mediastinum. Biapical pleural thickening with upper lobe granulomatous changes. Small nodular density at the right apex. Diffuse increased interstitial lung markings. Right hilar prominence. Mild patchy increased markings at the lung bases. Top normal heart size.
[2017-10-22] MEDS: Multiple Vitamins Tab PO SCH (09:42)
[2017-10-22] MEDS: Labetalol Hydrochloride 300 mg Tab PO SCH (12:03)
--- NOTE | 2017-10-22 13:13 | PCM.PYCHPN ---
Psychiatric Progress Note - Psychiatric Progress Note Patient seen today, length of contact: 15 minutes Patient Chief Complaint: "I am OK' Problems Identified/Issues Discussed: The pt is seen, chart reviewed, case discussed with staff. Support given, CBT and CA used briefly No new symptoms reported, improving slowly and needs more time No SEs from medications, risks discussed. After care discussed Medication Change: Yes (detox changes daily) Medical Record Reviewed: Yes Mental Status Examination - Cognitive Function Orientation: Person, Place, Situation, Time Memory: Intact Attention: WNL Concentration: WNL Association: WNL Fund of Knowledge: WNL - Mood Mood: Anxious (Wants less than before) - Affect Affect: Other (Appropriate) - Speech Speech: Appropriate - Formal Thought Process Formal Thought Process: No Impairment - Suicidal Ideation Suicidal Ideation: No - Homicidal Ideation Homicidal Ideation: No Goal/Treatment Plan - Goal/Treatment Plan Need for Continued Stay: Discharge may exacerbated symptoms, Severe functional impairment Progress Toward Problem(s) and Goals/Treatment Plan: Librium taper Gabapentin for augmentation As needed medications All risks, benefits and alternatives of the meds discussed, and the pt agreed and understood. Attend groups and activities Supportive therapy and psychoeducation CA for abstinence CBT for relapse prevention Encourage MAT Refer to rehab or IOP, and self-help groups Estimated Date of D/C: 10/23/17
[2017-10-22 17:03] VITALS: RESP 18
[2017-10-23 06:31] VITALS: O2SAT 96
--- NOTE | 2017-10-23 08:51 | PCM.PYCHDC ---
Mental Status Examination - Mental Status Examination Orientation: Person, Place, Situation, Time Discharge Summary - Discharge Note Consultations:: List each consultation separately and include: 1. Reason for request. 2. Findings. 3. Follow-up Summary of Hospital Course include:: 1. Description of specific treatment plan utilized for patients during their course of treatmen. 2. Summarize the time- course for resolution of acute symptoms and/or regressed behaviors. 3. Describe issues identified and worked on during hospitalization. 4. Describe medication utilized. 5. Describe medical problems identified and treated. 6. Reassessment of suicide risk Summary of Hospital Course: This is a 57 year old male, who presented to the ED for alcohol detox. Patient states he drinks 1 pint of tequila and a 12-pack of beer per day. Patient states he has been to several detox and short-term rehab facilities before. He states he was last at [facility] in July for detox. Patient states he also smokes marijuana occasionally. Patient denies other illicit drug use or tobacco use. Patient denies depression, anxiety, suicidal ideation, paranoia, or hallucinations. psych history: denies medical history: HTN, withdrawal seizure allergies: NKDA Wait listed in [facility] - Diagnosis (1) Alcohol use disorder, severe, dependence Current Visit: Yes Status: Acute - Final Diagnosis (DSM 5) Condition upon Discharge: STABLE Disposition: HOME/ ROUTINE Follow-up Treatment Plan: Librium taper Gabapentin for augmentation As needed medications All risks, benefits and alternatives of the meds discussed, and the pt agreed and understood. Attend groups and activities Supportive therapy and psychoeducation [place] for abstinence CBT for relapse prevention Encourage MAT Refer to rehab or IOP, and self-help groups Prescriptions/Medication Reconciliation: Gabapentin [Neurontin] 300 mg PO TID #90 cap hydrOXYzine HCl [Atarax] 50 mg PO BID PRN #40 tab PRN Reason: Anxiety Labetalol Hydrochloride [Normodyne] 300 mg PO DAILY #30 tab Losartan [Cozaar] 100 mg PO DAILY #30 tab Multivitamins [Hexavitamin] 1 tab PO DAILY #30 tab traZODone [Desyrel] 100 mg PO HS PRN #30 tab PRN Reason: Insomnia
[2017-10-23] MEDS: Labetalol Hydrochloride 300 mg Tab PO SCH (09:16)
[2017-10-23] MEDS: Multiple Vitamins Tab PO SCH (09:16)
[2017-10-23 10:32] VITALS: BP 121/71; PULSE 93; TEMP 98.3
== END 2017-10-23 11:30 | disposition home or self-care (01) | DRG 751 ==
LOC: C.ER 14:07 → C.7D 17:24
PROVIDERS: ADMIT Psychiatry & Neurology Psychiatry; ATTEND Psychiatry & Neurology Psychiatry
PROC: HZ2ZZZZ Detoxification Services for Substance Abuse Treatment (ICD-10-PCS; principal; 2017-10-18)
DX: F10.239 Alcohol dependence with withdrawal, unspecified (principal); F10.230 Alcohol dependence with withdrawal, uncomplicated; F10.220 Alcohol dependence with intoxication, uncomplicated; F12.10 Cannabis abuse, uncomplicated; Y90.1 Blood alcohol level of 20-39 mg/100 ml; I10 Essential (primary) hypertension; F19.10 Other psychoactive substance abuse, uncomplicated

== ENCOUNTER 2018-01-16 17:27 | Inpatient (IN) | payer MEDICAID ==
[2018-01-16 18:09] LABS: BASO # 0.2 K/uL (0.0-0.2); BASO % 2.6 % (0.0-2.0); EOS # 0.1 K/uL (0.0-0.7); EOS % 1.7 % (0.0-4.0); HEMOGLOBIN 12.1 g/dL (12.0-18.0); LYMPH # 2.7 K/uL (1.0-4.3); LYMPH % 34.1 % (20.0-40.0); MEAN CORPUSCULAR HEMOGLOBIN 31.9 pg (27.0-31.0); MEAN CORPUSCULAR HGB CONC 33.6 g/dL (33.0-37.0); MEAN PLATELET VOLUME 8.2 fL (7.2-11.7); MONO # 0.9 K/uL (0.0-0.8); MONO % 11.4 % (0.0-10.0); NEUT % 50.2 % (50.0-75.0); NRBC % 0.1 % (0.0-2.0); RBC 3.8 Mil/uL (4.40-5.90); WHITE BLOOD COUNT 7.9 K/uL (4.8-10.8)
--- NOTE | 2018-01-16 18:20 | C.PDOC ---
History Of Present Illness Patient presents to ED for alcohol detox. Patient is a daily drinker of ETOH, last drink was approx 2-3 hrs [employer]. He is currently c/o mild tremors and nausea. He denies any other physical complaints, and has no SI/HI. Time Seen by Provider: 01/16/18 17:36 Chief Complaint (Nursing): Substance Abuse History Per: Patient History/Exam Limitations: no limitations Onset/Duration Of Symptoms: Persistent Modifying Factor(s): Alcohol Severity: Moderate Associated Symptoms: denies: Anxiety, Depression, Suicidal Thoughts Past Medical History Reviewed: Historical Data, Nursing Documentation, Vital Signs Vital Signs: Last Vital Signs Temp 97.6 F 01/16/18 17:31 Pulse 80 01/16/18 17:31 Resp 18 01/16/18 17:31 BP 144/72 01/16/18 17:31 Pulse Ox 98 01/16/18 18:40 - Medical History PMH: Fractures, Gall Bladder Disease, HTN, Seizures Surgical History: CABG, Cholecystectomy - [facility] Procedures DETOXIFICATION SERVICES FOR SUBSTANCE ABUSE TREATMENT (10/18/17) GROUP BILINGUAL INTERPRETER FOR SUBSTANCE ABUSE TREATMENT, PSYCHOEDUCATION (07/27/17) GROUP BILINGUAL INTERPRETER FOR SUBSTANCE ABUSE, COGNITIVE BEHAVIORAL (07/27/17) INDIV PSYCHOTHERAPY FOR SUBSTANCE ABUSE TREATMENT, SUPPORT (07/27/17) INDIV PSYCHOTHERAPY FOR SUBSTANCE ABUSE, COGNITIV BEHAVIORAL (07/27/17) INDIV PSYCHOTHERAPY FOR SUBSTANCE ABUSE, PSYCHOEDUCATION (07/27/17) Family History: States: No Known Family Hx - Social History Hx Tobacco Use: No Hx Alcohol Use: Yes Hx Substance Use: Yes - Immunization History Hx Tetanus Toxoid Vaccination: Yes Hx Influenza Vaccination: Yes Hx Pneumococcal Vaccination: No Review Of Systems Constitutional: Negative for: Fever, Chills Cardiovascular: Negative for: Chest Pain, Palpitations Gastrointestinal: Positive for: Nausea. Negative for: Vomiting, Abdominal Pain , Diarrhea Skin: Negative for: Rash Neurological: Positive for: Other (mild tremors). Negative for: Headache Physical Exam - Physical Exam Appears: Well, Non-toxic, No Acute Distress Skin: Normal Color, Warm, Dry Head: Atraumatic, Normacephalic Eye(s): bilateral: Normal Inspection Oral Mucosa: Moist Cardiovascular: Rhythm Regular Respiratory: Normal Breath Sounds, No Rales, No Rhonchi, No Wheezing Gastrointestinal/Abdominal: Normal Exam, Bowel Sounds, Soft, No Tenderness Extremity: Bilateral: Atraumatic, Normal ROM Neurological/Psych: Oriented x3, Other (mild tremors B/L UEs) ED Course And Treatment - Laboratory Results Result Diagrams: 01/16/18 18:06 01/16/18 18:06 O2 Sat by Pulse Oximetry: 98 (RA) Pulse Ox Interpretation: Normal Progress Note: Blood work, UA, UDS ordered and reviewed. Patient given PO Librium and PO Zofran ODT. 6:10pm- Patient's ETOH 397. Patient otherwise medically cleared. Pending sobriety and crisis. Disposition - Disposition Disposition Time: 19:00 Condition: STABLE Forms: [facility] (Samoan) - Clinical Impression Clinical Impression: Alcohol dependence Physician Patient Turnover Patient Signed Over To: Deandre Katz Handoff Comments: pending sobriety and crisis evaluation
[2018-01-16 18:21] LABS: ALBUMIN 4.8 g/dL (3.5-5.0); ALT/SGPT 93 U/L (21-72); AST/SGOT 188 U/L (17-59); BLOOD UREA NITROGEN 14 mg/dL (9-20); CALCIUM 9.3 mg/dl (8.6-10.4); GFR AFRICAN-AMERICAN > 60; GFR NON-AFRICAN AMERICAN > 60
[2018-01-16 18:23] LABS: URINE BACTERIA OCC (<OCC); URINE BILIRUBIN NEGATIVE (NEGATIVE); URINE BLOOD NEGATIVE (NEGATIVE); URINE CLARITY Clear (Clear); URINE COLOR Straw (YELLOW); URINE GLUCOSE (UA) NORMAL (Normal); URINE LEUKOCYTE ESTERASE TRACE Leu/uL (Negative); URINE PROTEIN NEGATIVE (NEGATIVE); URINE UROBILINOGEN NORMAL mg/dL (0.2-1.0)
[2018-01-16 18:26] LABS: BARBITURATES, UR NEGATIVE (NEGATIVE); BENZODIAZEPINES, UR NEGATIVE (NEGATIVE); OPIATES, UR NEGATIVE (NEGATIVE); PHENCYCLIDINE, UR NEGATIVE (NEGATIVE)
--- NOTE | 2018-01-17 00:31 | PCM.BM ---
<Jill Bill M - Last Filed: 01/17/18 00:30> Treatment Plan Problems - Problems identified on initial assessmt Ineffective Coping Skills Date Initiated: 01/17/18 Time Initiated: 00:31 Assessment reference: NA Status: Active Treatment assets and liabiliti Patient Assests: ADL independent, cognitively intact Patient Liabilities: substance abuse - Milieu Protocol Maintain good personal hygiene: daily Encourage regular showers, daily Remind patient to perform daily oral care, other Assist patient to perform ADL's Maintain personal safety: every shift Educate patient to report safety concerns to staff, every shift Monitor environment for contraband/sharps Medication safety: Monitor for expected outcome, potential side effects: every shift, Assess barriers to learning: every shift, Assess readiness for medication education: every shift <Juan Goff M - Last Filed: 01/18/18 13:08> - Diagnosis (1) Alcohol use disorder, severe, dependence Status: Acute Interventions: 01/18/18 13:07 * Assess 7x/week regarding severity of withdrawal * Educate regarding risks, benefits, side effects and alternatives of medications * Use Motivational Interviewing for abstinence * Use CBT for relapse prevention * Medication management for withdrawal symptoms * Encourage medication assisted treatment (2) Cannabis use disorder, severe, dependence Status: Acute Interventions: 01/18/18 13:08 * Assess 7x/week regarding severity of withdrawal * Educate regarding risks, benefits, side effects and alternatives of medications * Use Motivational Interviewing for abstinence * Use CBT for relapse prevention * Medication management for withdrawal symptoms * Encourage medication assisted treatment
[2018-01-17] MEDS ORDERED: Multiple Vitamins Tab PO SCH (10:00)
--- NOTE | 2018-01-17 15:48 | PCM.PSYCH ---
Initial Psychiatric Evaluation - Initial Psychiatric Evaluation Type of Admission: Voluntary Legal Status: Capacity Chief Complaint (in patient's own words): I need help for my substance use. History of Present Illness and Precipitating Events: Patient is a 57 years old, single, unemployed, male with no previous psychiatric history was admitted due to withdrawing from alcohol and cannabis. Alcohol: Started using alcohol at 12 years of age, increased gradually. Currently he was drinking about 30 packs of beer and one and a half pack of jackass daily. His last drink was yesterday. He has history of 3 detox and one rehabilitation at [facility]. There was no longest period of abstinence. Next Cannabis. Started using cannabis at 14 years of age, increased gradually. Currently he was smoking 2-3 joints of cannabis daily. Last used yesterday. He has history of cocaine use years ago. He quit smoking one year ago. He has history of cholecystectomy, CABG, left femur surgery and splenectomy. He was born in [place] has 10th grade of education. 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 Currently he is on disability. He is single and has no children. He lives with mother. Height is 6 feet and his weight is 154 pounds. Patient wants to go to [facility] for follow-up care after discharge from the hospital. Current Medications: Active Medications Generic Name Dose Route Start Last Admin Trade Name Barron PRN Reason Stop Dose Admin Clonidine HCl 0.1 mg 01/17/18 00:35 Catapres PO Q4H PRN Symptoms of alcohol withdrawl Folic Acid 1 mg 01/17/18 10:00 01/17/18 10:12 Folic Acid PO 1 mg DAILY ASHWINI Administration Hydroxyzine HCl 25 mg 01/16/18 23:59 01/17/18 10:12 Atarax PO 25 mg Q6H PRN Administration Agitation Lorazepam 2 mg 01/17/18 00:35 01/17/18 12:44 Ativan PO 01/21/18 23:44 2 mg Q4 ASHWINI Administration Taper Multivitamins 1 tab 01/17/18 10:00 01/17/18 10:12 Hexavitamin PO 1 tab DAILY ASHWINI Administration Thiamine HCl 100 mg 01/17/18 10:00 01/17/18 10:12 Vitamin B1 Tab PO 100 mg DAILY ASHWINI Administration Trazodone HCl 50 mg 01/16/18 23:56 01/17/18 00:18 Desyrel PO 50 mg HS PRN Administration Insomnia Past Psychiatric History - Past Psychiatric History Previous Treatment History: Inpatient Prior Professional Help: [facility] History of Abuse: None reported History of ETOH/Drug Use: See HPI History of Family Illness: Reported his brother and 2 sisters are using cannabis and alcohol. Pertinent Medical Hx (Current Medical&Sleep Prob, Allergies): Allergies Allergy/AdvReac Type Severity Reaction Status Date / Time No Known Allergies Allergy Verified 01/16/18 17:33 Labetalol [Trandate] 300 mg PO DAILY 07/27/17 Sertraline [Zoloft] 50 mg PO DAILY #30 tab 08/03/17 levETIRAcetam [Keppra] 250 mg PO DAILY #7 tab 08/03/17 traZODone [Desyrel] 100 mg PO HS PRN #30 tab 08/03/17 Gabapentin [Neurontin] 300 mg PO TID #90 cap 10/23/17 Labetalol Hydrochloride [Normodyne] 300 mg PO DAILY #30 tab 10/23/17 Losartan [Cozaar] 100 mg PO DAILY #30 tab 10/23/17 Multivitamins [Hexavitamin] 1 tab PO DAILY #30 tab 10/23/17 hydrOXYzine HCl [Atarax] 50 mg PO BID PRN #40 tab 10/23/17 traZODone [Desyrel] 100 mg PO HS PRN #30 tab 10/23/17 Hypertension Hepatitis C Cirrhosis of liver Review of Systems - Psychiatric Psychiatric: As Per HPI, Depression Mental Status Examination - Personal Presentation Personal Presentation: Looks stated age - Affect Affect: Depressed - Motor Activity Motor Activity: Calm - Reliability in Providing Information Reliability in Providing Information: Fair - Speech Speech: Organized - Mood Mood: Depressed - Formal Thought Process Formal Thought Process: No Impairment - Hallucinations/Delusions Hallucinations: Other (None reported) Delusions: Other - Obsessions/Compulsions Obsessions: None Compulsions: None - Cognitive Functions Orientation: Person, Place, Situation, Time Sensorium: Alert Attention/Concentration: Attentive Abstract Thinking: [place] Estimate of Intelligence: Average Judgement: Intact, as evidence by: Insight regarding need for hospitalization Memory: Recent intact, as evidence by: Ability to recall events of the day, Remote intact, as evidenced by: Ability to recall historical events - Risk Risk: Seizure, Withdrawal, Diminished functioning - Strength & Assets Inventory Strength & Assets Inventory: Family support, Cooperative - Limitations Limitations: Other DSM 5 DX - DSM 5 DSM 5 Diagnosis: Alcohol use disorder severe Cannabis use disorder severe - Recommended/Plan of Treatment Treatment Recommendations and Plan of Treatment: Patient education. Supportive therapy. CPT for relapse prevention. IA for abstinence. We will start Ativan taper for alcohol withdrawal symptoms. Other when necessary medications. Patient wants to go to [facility] for follow-up care after discharge from the hospital. Projected ELOS: 4-5 days - Smoking Cessation Smoking Cessation Initiated: No Reason for not providing: Patient doesn't smoke cigarettes
[2018-01-17] MEDS ORDERED: Pantoprazole 40 mg EC Tab PO SCH (16:00)
[2018-01-17 16:58] VITALS: RESP 18
[2018-01-18 06:26] VITALS: O2SAT 98
[2018-01-18 08:12] VITALS: BP 108/71; TEMP 98.4
[2018-01-18 08:53] VITALS: PULSE 101
== END 2018-01-18 09:00 | disposition left against medical advice (07) | DRG 749 ==
LOC: C.ER 17:27 → C.9E 23:28 → C.7D 23:50
PROVIDERS: ADMIT Psychiatry & Neurology Psychiatry; ATTEND Psychiatry & Neurology Psychiatry
DX: F10.220 Alcohol dependence with intoxication, uncomplicated (principal); Y90.8 Blood alcohol level of 240 mg/100 ml or more; F12.20 Cannabis dependence, uncomplicated; Z95.1 Presence of aortocoronary bypass graft; Z87.891 Personal history of nicotine dependence; I10 Essential (primary) hypertension